=== PATIENT | female | born 1945 | race Caucasian/White ===

== ENCOUNTER → 2018-06-14 | Outpatient (REF) | payer MEDICARE, BC ==
[2018-06-14 14:38] LABS: INFLUENZA A AMPLIFICATION POSITIVE (NEGATIVE); INFLUENZA B AMPLIFICATION NEGATIVE (NEGATIVE)
== END ==
LOC: M LAB REF 13:50
PROVIDERS: ATTEND Nurse Practitioner Adult Health
DX: R05 Cough (principal)

== ENCOUNTER → 2019-03-30 | Outpatient (REF) | payer MEDICARE, BC | LOC: M LAB REF 18:31 | PROVIDERS: ATTEND Dermatology | DX: B07.9 Viral wart, unspecified (principal); D23.4 Other benign neoplasm of skin of scalp and neck; L57.0 Actinic keratosis ==

== ENCOUNTER 2019-05-18 15:05 | Outpatient (RCR) | payer MEDICARE, BC | END 2019-05-20 | LOC: M PT 15:05 | PROVIDERS: ATTEND Internal Medicine | DX: M25.561 Pain in right knee (principal); M54.30 Sciatica, unspecified side ==

== ENCOUNTER 2019-06-15 15:07 | Outpatient (RCR) | payer MEDICARE, BC | END 2019-06-18 | LOC: M PT 15:07 | PROVIDERS: ATTEND Internal Medicine | DX: M25.561 Pain in right knee (principal); M54.5 Low back pain ==

== ENCOUNTER 2019-06-29 13:45 | Outpatient (RCR) | payer MEDICARE, BC | END 2019-07-19 | LOC: M PT 13:45 | PROVIDERS: ATTEND Internal Medicine | DX: Z51.89 Encounter for other specified aftercare (principal); M54.31 Sciatica, right side ==

== ENCOUNTER 2019-11-08 15:09 | Emergency (ER) | payer MEDICARE, BC ==
[~2019-11-08] VITALS: Ht 149.9 cm; Wt 87.7 kg
[2019-11-08 16:19] VITALS: BP 134/67
[2019-11-08] MEDS ORDERED: SYNT100T (16:23)
[2019-11-08] MEDS ORDERED: ESTR1MIS (16:23)
[2019-11-08 16:25] LABS: BASO % 0.3 % (0.0-1.0); EOS # 0.1 10^3/uL (0.0-0.5); EOS % 1.3 % (0.0-3.0); HEMATOCRIT 44.7 % (36.0-47.0); LYMPH # 1.4 10^3/uL (1.5-5.0); LYMPH % 20.6 % (24.0-44.0); MEAN CORPUSCULAR HEMOGLOBIN 29.3 pg (27.0-33.0); MEAN CORPUSCULAR HGB CONC 33.6 g/dl (32.0-36.5); MEAN CORPUSCULAR VOLUME 87.3 fl (80.0-96.0); MONO # 1.1 10^3/uL (0.0-0.8); MONO % 16.1 % (0.0-5.0); NEUTROPHILS # 4.3 10^3/uL (1.5-8.5); NEUTROPHILS % 61.6 % (36.0-66.0); PLATELET COUNT, AUTOMATED 142 10^3/uL (150-450); RED BLOOD COUNT 5.12 10^6/uL (4.00-5.40); WHITE BLOOD COUNT 6.9 10^3/uL (4.0-10.0)
[2019-11-08 16:43] LABS: BLOOD UREA NITROGEN 10 MG/DL (7-18); CALCIUM LEVEL 9.3 MG/DL (8.8-10.2); CARBON DIOXIDE LEVEL 23 MEQ/L (21-32); CHLORIDE LEVEL 106 MEQ/L (98-107); CREATININE FOR GFR 0.76 MG/DL (0.55-1.30); GLOMERULAR FILTRATION RATE > 60.0 (>39); GLUCOSE, FASTING 127 MG/DL (70-100); POTASSIUM SERUM 3.5 MEQ/L (3.5-5.1); SODIUM LEVEL 137 MEQ/L (136-145)
== END 2019-11-08 18:11 | disposition home or self-care (01) ==
LOC: M ED 15:09
DX: R19.7 Diarrhea, unspecified (principal); K14.1 Geographic tongue; E11.9 Type 2 diabetes mellitus without complications; J45.909 Unspecified asthma, uncomplicated; Z79.899 Other long term (current) drug therapy; Z79.3 Long term (current) use of hormonal contraceptives; Z88.5 Allergy status to narcotic agent; Z91.048 Other nonmedicinal substance allergy status

== ENCOUNTER → 2020-08-22 | Outpatient (REF) | payer MEDICARE, BC ==
[~2020-08-22] MED LIST: ESTR1MIS; SYNT100T
[2020-08-22 17:56] LABS: HEPATITIS A ANTIBODY IGM NEGATIVE (NEGATIVE); HEPATITIS B CORE ANTIBODY IGM NEGATIVE (NEGATIVE); HEPATITIS B SURFACE ANTIGEN NEGATIVE (NEGATIVE); HEPATITIS C VIRUS ABY INDEX < 0.0 INDEX (<0.8)
== END ==
LOC: M LAB REF 16:16
PROVIDERS: ATTEND Internal Medicine
DX: E11.9 Type 2 diabetes mellitus without complications (principal)

== ENCOUNTER → 2021-01-15 | Outpatient (CLI) | payer MEDICARE, BC ==
--- NOTE | 2021-01-15 12:54 | REP ---
INDICATION: LBP R SCIATICA. COMPARISON: 04/27/2019 TECHNIQUE: Five views FINDINGS: There is a mild levoconvex curve status quo. There is bilateral marginal osteophytosis heaviest at the L3-4 level status quo. There degenerative disc space narrowing at every level and again particularly at L 3 4 where there is air density in the disc space consistent with vacuum phenomena from degenerative disc disease. There is endplate sclerosis seen at L3-4. There is anterior lipping at every level. Degenerative facet joint changes are again seen bilaterally at every level. Vertebral body height and alignment is unchanged. IMPRESSION: Stable appearing chronic changes as described above. <Electronically signed by Carlo Jacobs > 01/15/21 [id number]
== END ==
LOC: M PLAIMG 11:07
PROVIDERS: ATTEND Internal Medicine
DX: M51.37 Other intervertebral disc degeneration, lumbosacral region (principal)

== ENCOUNTER → 2021-12-12 | Outpatient (CLI) | payer MEDICARE, BC | LOC: M WHC 09:03 | PROVIDERS: ATTEND Internal Medicine Gastroenterology | DX: K76.0 Fatty (change of) liver, not elsewhere classified (principal); K74.01 Hepatic fibrosis, early fibrosis; R16.0 Hepatomegaly, not elsewhere classified ==

== ENCOUNTER → 2022-10-01 | Outpatient (CLI) | payer MEDICARE, BC | LOC: M PLAIMG 13:23 | PROVIDERS: ATTEND Internal Medicine Critical Care Medicine | DX: R06.02 Shortness of breath (principal) ==